=== PATIENT | male | born 1960 | race Caucasian/White ===

== ENCOUNTER 2017-07-17 08:31 | Emergency (ER) | payer BC ==
[2017-07-17 10:14] VITALS: BP 171/91
--- NOTE | 2017-07-17 10:53 | UC ---
Respiratory Complaint HPI - HPI Summary HPI Summary: Cough and wheezing for about 5-7 days. has had acute bronchitis. He has no pcp and no prior dx of copd. He is a smoker. He used 's inhaler and it helped with his wheezing. He has had [place] with stairs. No fever or hemoptysis. - History of Current Complaint Chief Complaint: UCRespiratory Stated Complaint: CONGESTION,COUGH Time Seen by Provider: 07/17/17 10:39 Hx Obtained From: Patient Onset/Duration: Gradual Onset, Lasting Days Timing: Constant Severity Initially: Moderate Severity Currently: Moderate Pain Intensity: 0 Aggravating Factors: Deep Breaths, Recumbent Position Alleviating Factors: Upright Position, Spontaneous Resolution Associated Signs And Symptoms: Positive: Wheezing, URI, Nasal Congestion. Negative: Fever, Chills, Hemoptysis, Calf Pain, Calf Swelling, Edema - Allergies/Home Medications Allergies/Adverse Reactions: Allergies Allergy/AdvReac Type Severity Reaction Status Date / Time No Known Allergies Allergy Verified 07/17/17 10:14 Home Medications: Home Medications Garlic [ Garlic] 150 mg PO 07/17/17 [History] [place]-3 Fatty Acids/Fish Oil [Fish Oil 1,000 mg Capsule] 1 each PO 07/17/17 [ History] PMH/Surg Hx/FS Hx/Imm Hx Previously Healthy: No - smoker. - Surgical History Surgical History: None - Family History Known Family History: Positive: Cardiac Disease, Hypertension, Diabetes, Other - "thyroid" - Social History Lives: With Family Alcohol Use: Weekly Substance Use Type: Excessive Caffeine Substance Use Comment - Amount & Last Used: 15/daily; 1/2 cup today Smoking Status (MU): Light Every Day Tobacco Smoker Type: Cigarettes Amount Used/How Often: 1 PPD Length of Time of Smoking/Using Tobacco: 43 Years Have You Smoked in the Last Year: Yes When Did the Patient Quit Smoking/Using Tobacco: 06/30/15 Household Exposure Type: Cigarettes - Immunization History Most Recent Influenza Vaccination: Not the Season Review of Systems Respiratory: Shortness Of Breath, Cough Cardiovascular: Negative - No chest pain. All Other Systems Reviewed And Are Negative: Yes Physical Exam Triage Information Reviewed: Yes Appearance: Well-Appearing - Breathing and talking comfortably., No Pain Distress, Well-Nourished Vital Signs: Initial Vital Signs Temp 98.7 F 07/17/17 10:09 Pulse 62 02/14/18 10:09 Resp 18 07/17/17 10:09 BP 171/91 07/17/17 10:09 Pulse Ox 97 07/17/17 10:09 Vital Signs Reviewed: Yes Eyes: Positive: Conjunctiva Clear ENT: Positive: Normal ENT inspection, Pharynx normal, TMs normal, Uvula midline. Negative: TM bulging, TM dull, TM red, Tonsillar swelling, Tonsillar exudate, Trismus, Muffled voice, Sinus tenderness Neck: Positive: Supple, Nontender, No Lymphadenopathy Respiratory: Positive: No respiratory distress, No accessory muscle use, Rhonchi , Wheezing. Negative: Respiratory distress, Decreased breath sounds, Accessory muscle use, Crackles, Stridor Cardiovascular: Positive: RRR, No Murmur, Pulses Normal Abdomen Description: Positive: No Organomegaly, Soft. Negative: Distended, Guarding Musculoskeletal: Positive: Strength Intact, ROM Intact, No Edema Neurological: Positive: Alert, Muscle Tone Normal. Negative: Fatigued Psychological: Positive: Age Appropriate Behavior Skin: Negative: rashes UC Diagnostic Evaluation - Laboratory O2 Sat by Pulse Oximetry: 97 Respiratory Course/Dx - Course Course Of Treatment: He was told in no uncertain terms that he needs a pcp. I told him we could give him some information to find a pcp. - Differential Dx/Diagnosis Provider Diagnoses: acute bronchitis with wheezing. Discharge - Discharge Plan Condition: Good Disposition: HOME Prescriptions: Albuterol HFA INHALER* [Ventolin HFA Inhaler*] 1 puff INH Q4H PRN #1 mdi PRN Reason: Cough Azithromyxin VERÓNICA (NF) [Z-Verónica (Zithromax) 250 mg tabs #6] 2 tab PO .TODAY, THEN 1 DAILY #6 tab Inhaler, Assist Devices [Aerochamber Mini] 1 each MC QID PRN #1 spacer PRN Reason: Cough predniSONE TAB* [Deltasone TAB*] 20 mg PO DAILY #15 tab Patient Education Materials: Acute Bronchitis (ED) Referrals: No Primary Care Phys,NOPCP [Primary Care Provider] - [facility] [Outside]
== END 2017-07-17 11:00 | disposition home or self-care (01) ==
LOC: UCCORT 08:31
DX: J20.9 Acute bronchitis, unspecified (principal); R06.2 Wheezing; F17.210 Nicotine dependence, cigarettes, uncomplicated
CPT/HCPCS: 99212; G0463